=== PATIENT | male | born 1940 | race Caucasian/White ===

== ENCOUNTER 2019-05-10 22:20 | Inpatient (IN) | payer MEDICARE, OTHER ==
[2019-05-10 23:30] LABS: Basophils # (A) 0.1 k/uL (0-0.2); Basophils % (A) 1 %; Eosinophils # (A) 0.1 k/uL (0-0.7); Eosinophils % (A) 1 %; HCT 41.5 % (39.0-53.0); HGB 13.3 gm/dL (13.0-17.5); Lymphocytes # (A) 1.1 k/uL (1.0-4.8); Lymphocytes % (A) 11 %; MCHC 32.1 g/dL (31.0-37.0); MCV 96.4 fL (80.0-100.0); Mean Platelet Volume 7.3; Monocytes # (A) 0.6 k/uL (0-1.0); Monocytes % (A) 6 %; Neutrophils # (A) 8.3 k/uL (1.3-7.7); Neutrophils % (A) 81 %; Platelet Count 171 k/uL (150-450); RDW 12.3 % (11.5-15.5); WBC 10.3 k/uL (3.8-10.6)
--- NOTE | 2019-05-10 23:37 | ED ---
General Adult HPI - General Chief complaint: Fall Stated complaint: Fall Time Seen by Provider: 05/10/19 22:44 Source: EMS Mode of arrival: EMS - History of Present Illness Initial comments: Dictation was produced using [employer] dictation software. please excuse any grammatical, word or spelling errors. Chief Complaint: 78-year-old male past history of Parkinson's disease presents with right hip fracture. History of Present Illness: Patient is 78-year-old male he was transferred from [facility] for right hip fracture. Patient was resides at a senior care. He is at the senior care for Parkinson's disease. Patient was in his wheelchair when his wheelchair malfunction causing to fall and his right side. Patient states this happened early in the afternoon. Patient has any head trauma. No neck pain. No other complaints except for right hip pain. Denies any numbness or paresthesias to the right lower extremity. The ROS documented in this emergency department record has been reviewed and confirmed by me. Those systems with pertinent positive or negative responses have been documented in the HPI. All other systems are other negative and/or noncontributory. PHYSICAL EXAM: General Impression: Alert and oriented x3, not in acute distress HEENT: Normocephalic atraumatic, extra-ocular movements intact, pupils equal and reactive to light bilaterally, mucous membranes moist. Cardiovascular: Heart regular rate and rhythm, S1&S2 audible, no murmurs, rubs or gallops Chest: Lungs clear to auscultation bilaterally, no rhonchi, no wheeze, no rales Abdomen: Bowel sounds present, abdomen soft, non-tender, non-distended, no organomegaly Musculoskeletal: Pulses present and equal in all extremities, no peripheral edema, tinnitus palpation over the right hip Motor: no focal deficits noted Neurological: CN II-XII grossly intact, no focal motor or sensory deficits noted Skin: Intact with no visualized rashes Psych: Normal affect and mood ED course: 78-year-old male presents with alleged right hip fracture. We do not have access to those images. Vital signs upon arrival are within acceptable limits.Laboratory evaluation obtained CBC, coag panel, metabolic panel is unremarkable. Chest x-ray femur x-ray and hip pelvis x-ray was obtained. Chest x-ray is nonacute. Femur x-ray shows acute impacted subcapital fracture of the right femoral neck. Patient has [facility] with [facility] Discussed patient case with Dr. Royal who is willing to accept patient admission. He states that likely operative intervention on Monday. Does not need to be nothing by mouth until Monday night at midnight. Patient be admitted. Medicine to be on consult for medical clearance. EKG interpretation: Ventricular rate 77, sinus rhythm,. Interval 170, QS 106, QTC 461. No AR prolongation, no QTC prolongation, no ST or T-wave changes noted. No old EKG for comparison. Overall, this EKG is unremarkable - Related Data Home Medications Medication Instructions Recorded Confirmed Acetaminophen Tab [Tylenol Tab] 650 mg PO Q4H PRN 05/10/19 05/10/19 Alclometasone Dipropionate 1 applic TOPICAL BID 05/10/19 05/10/19 Artificial Tears-Hypromellose 1 drops BOTH EYES TID 05/10/19 05/10/19 [Artificial Tear Drops] Baclofen [Lioresal] 10 mg PO DAILY 05/10/19 05/10/19 Calcium Carbonate [Calcium] 600 mg PO BID 05/10/19 05/10/19 Carbidopa-Levodopa 25-100 mg 2 tab PO TID 05/10/19 05/10/19 [Sinemet 25-100] Certavite Tab Senior 1 tab PO HS 05/10/19 05/10/19 Cholecalciferol [Vitamin D3 (25 1,000 unit PO DAILY 05/10/19 05/10/19 Mcg = 1000 Iu)] Cranberry Fruit Extract [Cranberry] 200 mg PO DAILY 05/10/19 05/10/19 Cyanocobalamin (Vitamin B-12) 1,000 mcg PO DAILY 05/10/19 05/10/19 [Vitamin B-12] DULoxetine HCL [Cymbalta] 30 mg PO DAILY 05/10/19 05/10/19 Diazepam 2 mg PO BID 05/10/19 05/10/19 Entacapone [Comtan] 200 mg PO TID 05/10/19 05/10/19 HYDROcodone/APAP 5-325MG [[place] 1 tab PO TID PRN 05/10/19 05/10/19 5-325] Ketoconazole 2% Cream [Nizoral 2%] 1 applic TOPICAL BID 05/10/19 05/10/19 Magnesium Hydroxide [Milk of 2,400 mg PO DAILY PRN 05/10/19 05/10/19 Magnesia] Omeprazole 20 mg PO DAILY 05/10/19 05/10/19 Polyethylene Glycol 3350 [Miralax] 17 gm PO DAILY 05/10/19 05/10/19 Potassium 99 mg PO DAILY 05/10/19 05/10/19 Primidone [Mysoline] 25 mg PO HS 05/10/19 05/10/19 Primidone [Mysoline] 50 mg PO QAM 05/10/19 05/10/19 Sennosides [Senna] 8.6 mg PO DAILY 05/10/19 05/10/19 Vits A,C,E/Lutein/Minerals 1 tab PO DAILY 05/10/19 05/10/19 [Ocuvite with Lutein Tablet] Allergies Allergy/AdvReac Type Severity Reaction Status Date / Time Penicillins AdvReac Unknown Verified 05/10/19 22:38 Sulfa (Sulfonamide AdvReac Unknown Verified 05/10/19 22:38 Antibiotics) Review of Systems ROS Statement: Those systems with pertinent positive or pertinent negative responses have been documented in the HPI. ROS Other: All systems not noted in ROS Statement are negative. Past Medical History Past Medical History: GERD/Reflux, Renal Disease Additional Past Medical History / Comment(s): Dysphagia(regular diet 05/03),parkinsons, History of Any Multi-Drug Resistant Organisms: None Reported Past Surgical History: Back Surgery, Prostate Surgery Additional Past Surgical History / Comment(s): prostectomy, Past Psychological History: Anxiety, Depression Smoking Status: Never smoker Past Alcohol Use History: None Reported Past Drug Use History: None Reported Course Vital Signs 05/10/19 22:28 Temperature 97.8 F Pulse Rate 81 Respiratory 17 Rate Blood Pressure 138/85 O2 Sat by Pulse 93 L Oximetry Medical Decision Making - Lab Data Result diagrams: 05/10/19 22:55 05/10/19 22:55 Lab Results 05/10/19 05/10/19 05/10/19 Range/Units 22:55 22:55 22:55 WBC 10.3 (3.8-10.6) k/uL RBC 4.30 (4.30-5.90) m/uL Hgb 13.3 (13.0-17.5) gm/dL Hct 41.5 (39.0-53.0) % MCV 96.4 (80.0-100.0) fL MCH 31.0 (25.0-35.0) pg MCHC 32.1 (31.0-37.0) g/dL RDW 12.3 (11.5-15.5) % Plt Count 171 (150-450) k/uL Neutrophils % 81 % Lymphocytes % 11 % Monocytes % 6 % Eosinophils % 1 % Basophils % 1 % Neutrophils # 8.3 H (1.3-7.7) k/uL Lymphocytes # 1.1 (1.0-4.8) k/uL Monocytes # 0.6 (0-1.0) k/uL Eosinophils # 0.1 (0-0.7) k/uL Basophils # 0.1 (0-0.2) k/uL PT 10.9 (9.0-12.0) sec INR 1.0 (<1.2) APTT 27.5 (22.0-30.0) sec Sodium 137 (137-145) mmol/L Potassium 4.3 (3.5-5.1) mmol/L Chloride 107 (98-107) mmol/L Carbon Dioxide 24 (22-30) mmol/L Anion Gap 6 mmol/L BUN 21 H (9-20) mg/dL Creatinine 0.85 (0.66-1.25) mg/dL Est GFR (CKD-EPI)AfAm >90 (>60 ml/min/1.73 sqM) Est GFR (CKD-EPI)NonAf 84 (>60 ml/min/1.73 sqM) Glucose 90 (74-99) mg/dL Calcium 9.0 (8.4-10.2) mg/dL Disposition Clinical Impression: Right femoral fracture Disposition: ADMITTED IP TO THIS HOSP Condition: Fair Referrals: Martine Simmons NPC [REFERRING] - 1-2 days Decision Time: 00:00
[2019-05-10 23:40] LABS: Partial Thromboplastin Time 27.5 sec (22.0-30.0); Prothrombin Time 10.9 sec (9.0-12.0)
[2019-05-10 23:44] LABS: African American GFR (CKD) >90 (>60 ml/min/1.73 sqM); Anion Gap 6 mmol/L; Blood Urea Nitrogen 21 mg/dL (9-20); Carbon Dioxide 24 mmol/L (22-30); Chloride 107 mmol/L (98-107); Glucose 90 mg/dL (74-99); Non-African American GFR(CKD) 84 (>60 ml/min/1.73 sqM); Potassium 4.3 mmol/L (3.5-5.1); Sodium 137 mmol/L (137-145)
--- NOTE | 2019-05-10 23:47 | XR ---
INDICATION: Pain COMPARISON: None FINDINGS: AP view of the pelvis and AP and lateral views of the right hip are submitted for interpretation. There is an acute traumatic impacted subcapital fracture of the right femoral neck. There is no joint dislocation. Remainder of the bony pelvis appears intact. Surgical clips project over the pelvis. IMPRESSION: Acute impacted subcapital fracture of the right femoral neck.
--- NOTE | 2019-05-10 23:47 | XR ---
INDICATION: Pain COMPARISON: None FINDINGS: AP views of the right femur are obtained. There is an acute traumatic impacted subcapital fracture of the right femoral neck. The distal femur is intact. 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 IMPRESSION: Acute impacted subcapital fracture of the right femoral neck.
--- NOTE | 2019-05-10 23:47 | XR ---
INDICATION: Pain COMPARISON: None FINDINGS: Single frontal view of the chest is provided. The heart is enlarged. Pulmonary vascularity is slightly increased. There is opacity at the lateral left lung base. The right lung is clear. There is no pleural effusion or pneumothorax. Limited skeletal evaluation reveals no acute findings. IMPRESSION: 1. Opacity at the lateral left lung base, atelectasis or infiltrate.
[2019-05-10] MEDS ORDERED: SODIUM CHLORIDE 0.9% 1,000 ML IV STA (23:50)
[2019-05-11] MEDS ORDERED: NALOXONE 0.4 MG/ML 1 ML VIAL IV PRN
[2019-05-11] MEDS ORDERED: ACETAMINOPHEN TAB 325 MG TAB PO PRN ×2 (00:02)
[2019-05-11 01:36] LABS: Appearance,Urine Clear (Clear); Bilirubin,Urine Negative (Negative); Blood,Urine Negative (Negative); Color,Urine Yellow; Glucose,Urine (UA) Negative (Negative); Ketones,Urine Negative (Negative); Leukocyte Esterase,Urine Negative (Negative); Nitrite,Urine Negative (Negative); Protein,Urine Negative (Negative); Specific Gravity,Urine 1.016 (1.001-1.035); Urobilinogen,Urine <2.0 mg/dL (<2.0)
[2019-05-11] MEDS: SODIUM CHLORIDE 0.9% 1,000 ML IV SCH ×2 (01:38→20:33)
[2019-05-11] MEDS: MORPHINE SULFATE 4 MG/ML SYRINGE IV PRN ×2 (03:25→09:32)
[2019-05-11] MEDS: PANTOPRAZOLE 40 MG/10 ML VIAL IV SCH (09:32)
[2019-05-11] MEDS: DIAZEPAM 2 MG TAB PO SCH ×2 (09:33→20:29)
[2019-05-11] MEDS: CARBIDOPA-LEVODOPA 25-100 MG 1 EACH TAB PO SCH ×3 (09:33→20:28)
[2019-05-11] MEDS: HEPARIN SODIUM,PORCINE 5,000 UNIT/ML 1 ML VIAL SQ SCH ×2 (09:41→20:28)
[2019-05-11] MEDS: HYDROCORTISONE 1% CREAM 30 GM TUBE TOPICAL SCH ×2 (09:41→20:28)
--- NOTE | 2019-05-11 12:06 | P.HPOR ---
History of Present Illness H&P Date: 05/11/19 This is a 78-year-old male who is admitted after a fall. Patient was brought to the emergency room via EMS from [facility] and typically resides in a care home. Patient states that he lost his balance and fell. Patient denies any lightheadedness or syncope. Today, patient reports pain in the right hip. Patient is a fairly poor historian due to confusion and no family is present in the room. Patient's past medical history is significant for Parkinson's disease, prostate cancer, GERD and renal disease. Review of Systems See HPI. Past Medical History Past Medical History: Cancer, Chest Pain / Angina, GERD/Reflux, Prostate Disorder, Renal Disease Additional Past Medical History / Comment(s): Dysphagia(regular diet 05/2019),parkinsons, prostate cancer History of Any Multi-Drug Resistant Organisms: None Reported Past Surgical History: Back Surgery, Prostate Surgery Additional Past Surgical History / Comment(s): prostectomy Past Psychological History: Anxiety, Depression Smoking Status: Never smoker Past Alcohol Use History: None Reported Past Drug Use History: None Reported Medications and Allergies Home Medications Medication Instructions Recorded Confirmed Type Acetaminophen Tab [Tylenol Tab] 650 mg PO Q4H PRN 05/10/19 05/10/19 History Alclometasone Dipropionate 1 applic TOPICAL BID 05/10/19 05/10/19 History Artificial Tears-Hypromellose 1 drops BOTH EYES TID 05/10/19 05/10/19 History [Artificial Tear Drops] Baclofen [Lioresal] 10 mg PO DAILY 05/10/19 05/10/19 History Calcium Carbonate [Calcium] 600 mg PO BID 05/10/19 05/10/19 History Carbidopa-Levodopa 25-100 mg 2 tab PO TID 05/10/19 05/10/19 History [Sinemet 25-100] Certavite Tab Senior 1 tab PO HS 05/10/19 05/10/19 History Cholecalciferol [Vitamin D3 (25 1,000 unit PO DAILY 05/10/19 05/10/19 History Mcg = 1000 Iu)] Cranberry Fruit Extract [Cranberry] 200 mg PO DAILY 05/10/19 05/10/19 History Cyanocobalamin (Vitamin B-12) 1,000 mcg PO DAILY 05/10/19 05/10/19 History [Vitamin B-12] DULoxetine HCL [Cymbalta] 30 mg PO DAILY 05/10/19 05/10/19 History Diazepam 2 mg PO BID 05/10/19 05/10/19 History Entacapone [Comtan] 200 mg PO TID 05/10/19 05/10/19 History HYDROcodone/APAP 5-325MG [[place] 1 tab PO TID PRN 05/10/19 05/10/19 History 5-325] Ketoconazole 2% Cream [Nizoral 2%] 1 applic TOPICAL BID 05/10/19 05/10/19 History Magnesium Hydroxide [Milk of 2,400 mg PO DAILY PRN 05/10/19 05/10/19 History Magnesia] Omeprazole 20 mg PO DAILY 05/10/19 05/10/19 History Polyethylene Glycol 3350 [Miralax] 17 gm PO DAILY 05/10/19 05/10/19 History Potassium 99 mg PO DAILY 05/10/19 05/10/19 History Primidone [Mysoline] 25 mg PO HS 05/10/19 05/10/19 History Primidone [Mysoline] 50 mg PO QAM 05/10/19 05/10/19 History Sennosides [Senna] 8.6 mg PO DAILY 05/10/19 05/10/19 History Vits A,C,E/Lutein/Minerals 1 tab PO DAILY 05/10/19 05/10/19 History [Ocuvite with Lutein Tablet] Allergies Allergy/AdvReac Type Severity Reaction Status Date / Time Penicillins AdvReac Unknown Verified 05/10/19 22:38 Sulfa (Sulfonamide AdvReac Unknown Verified 05/10/19 22:38 Antibiotics) Physical Examination On exam patient is resting comfortably in bed in no acute distress. Patient is somewhat confused, but is alert and will answer questions. There is minimal tenderness to palpation over the right hip. Bilateral lower extremities are warm and well perfused. Skin is intact. There is no erythema or ecchymosis. Patient has limited range of motion of the right lower extremity due to injury. Dorsalis pedis pulses are 2+ in bilateral lower extremities. There is no tenderness to palpation over the left lower extremity. Calves are soft and nontender to palpation bilaterally. Sensation is intact. There is no tenderness to palpation over bilateral upper extremities. Exams of the head and neck are within normal limits. Results X-rays of the right hip and pelvis show a subcapital fracture of the right femur. - Labs Labs: Abnormal Lab Results - Last 24 Hours (Table) 05/10/19 05/10/19 Range/Units 22:55 22:55 Neutrophils # 8.3 H (1.3-7.7) k/uL BUN 21 H (9-20) mg/dL H & H 05/10/19 Range/Units 22:55 Hgb 13.3 (13.0-17.5) gm/dL Hct 41.5 (39.0-53.0) % Coagulation 05/10/19 Range/Units 22:55 INR 1.0 (<1.2) Result Diagrams: 05/10/19 22:55 05/10/19 22:55 Assessment and Plan Assessment: History of prostate cancer GERD Renal disease (1) Fall Current Visit: Yes Status: Acute Code(s): W19.XXXA - UNSPECIFIED FALL, INITIAL ENCOUNTER SNOMED Code(s): 2006501 (2) Parkinsons disease Current Visit: Yes Status: Acute Code(s): G20 - PARKINSON'S DISEASE SNOMED Code(s): 54422704 (3) Closed right hip fracture Current Visit: Yes Status: Acute Code(s): S72.001A - FRACTURE OF UNSP PART OF NECK OF RIGHT FEMUR, INIT SNOMED Code(s): 853972387 (4) Right femoral fracture Current Visit: Yes Status: Acute Code(s): S72.91XA - UNSP FRACTURE OF RIGHT FEMUR, INIT FOR CLOS FX SNOMED Code(s): 31569232 Plan: 1. X-rays are reviewed. Patient is to be nonweightbearing to the right lower extremity. 2. Continue pain control. 3. NPO after midnight. 4. Appreciate input from medicine 5. Right hip hemiarthroplasty is scheduled for tomorrow pending medical clearance and consent.
[2019-05-11] MEDS: HYDROcodone/APAP 5-325MG 1 EACH TAB PO PRN (15:04)
[2019-05-11] MEDS: ARTIFICIAL TEARS-HYPROMELLOSE DROPS 15 ML BTL BOTH EYES SCH ×3 (15:38→20:29)
[2019-05-11] MEDS: CLOTRIMAZOLE 1% CREAM 15 GM TUBE TOPICAL SCH (20:32)
[2019-05-12] MEDS: HYDROcodone/APAP 5-325MG 1 EACH TAB PO PRN (01:50)
[2019-05-12] MEDS: MORPHINE SULFATE 4 MG/ML SYRINGE IV PRN (05:22)
[2019-05-12] MEDS: DIAZEPAM 2 MG TAB PO SCH ×2 (07:57→23:39)
[2019-05-12] MEDS: CARBIDOPA-LEVODOPA 25-100 MG 1 EACH TAB PO SCH ×3 (07:57→21:52)
[2019-05-12] MEDS: ARTIFICIAL TEARS-HYPROMELLOSE DROPS 15 ML BTL BOTH EYES SCH ×3 (08:27→21:55)
[2019-05-12] MEDS: HEPARIN SODIUM,PORCINE 5,000 UNIT/ML 1 ML VIAL SQ SCH (08:27)
[2019-05-12] MEDS: CLOTRIMAZOLE 1% CREAM 15 GM TUBE TOPICAL SCH ×2 (08:27→22:08)
[2019-05-12] MEDS: HYDROCORTISONE 1% CREAM 30 GM TUBE TOPICAL SCH ×2 (08:27→22:08)
[2019-05-12] MEDS: PANTOPRAZOLE 40 MG/10 ML VIAL IV SCH (08:27)
[2019-05-12] MEDS ORDERED: MIDAZOLAM 2 MG/2 ML VIAL ONE ×2 (08:31)
[2019-05-12] MEDS ORDERED: SODIUM CHLORIDE 0.9% 100 ML BAG ONE ×2 (08:31)
[2019-05-12] MEDS ORDERED: PROPOFOL 10 MG/ML 20 ML VIAL IV ONE ×2 (08:31)
[2019-05-12] MEDS ORDERED: ePHEDrine SULFATE/0.9% NACL/PF 50 MG/5 ML SYRINGE IV ONE ×2 (08:31)
[2019-05-12] MEDS ORDERED: TRANEXAMIC ACID 1,000 MG/10 ML VIAL ONE ×2 (08:31)
[2019-05-12] MEDS ORDERED: SODIUM CHLORIDE 0.9% 300 ML IV ONE ×2 (08:31)
[2019-05-12] MEDS ORDERED: KETAMINE 10 MG/ML 20 ML VIAL ONE ×2 (08:31)
[2019-05-12] MEDS ORDERED: Acetaminophen-Codeine 300-30mg TAB PO PRN (08:37)
[2019-05-12] MEDS ORDERED: ONDANSETRON 4 MG/2 ML VIAL IVP PRN (08:37)
[2019-05-12] MEDS ORDERED: SODIUM CHLORIDE 0.9% 50 ML with ceFAZolin 2,000 MG IV ONE ×2 (08:56)
[2019-05-12] MEDS ORDERED: LACTATED RINGERS 1,000 ML IV ONE ×2 (09:18)
[2019-05-12] MEDS ORDERED: TRANEXAMIC ACID 1,000 MG in SODIUM CHLORIDE 0.9% 100 ML IVPB PRN ×2 (09:20→09:21)
[2019-05-12] MEDS ORDERED: ceFAZolin 3,000 MG in SODIUM CHLORIDE 0.9% IRRIGATIO 3,000 ML IRRIGATION ONE (09:34)
--- NOTE | 2019-05-12 10:22 | P.OP ---
Date of Procedure: 05/12/19 Procedure(s) Performed: PREOPERATIVE DIAGNOSIS: Right hip femoral neck fracture POSTOPERATIVE DIAGNOSIS: Right hip femoral neck fracture OPERATION: Right hip cemented unipolar hemiarthroplasty. ANESTHESIA: Spinal ESTIMATED BLOOD LOSS: 225 ml. METAPHYSICS TEACHER: None COMPLICATIONS: None apparent. COMPONENTS IMPLANTED: Lori LDFx cemented femoral stem; unipolar femoral head; neck extension augments as needed. INDICATIONS: Mr. Westfall is a 78-year-old male with a history of falling and sustaining a femoral neck fracture. He has a history of severe Parkinson's disease. I have recommended surgical treatment with a cemented unipolar hemiarthroplasty. I have discussed this procedure in detail and explained the potential risks and complications as being inclusive of, but not limited to: Bleeding, infection, scarring, discomfort, blood vessel and/or nerve damage, limb length inequality, gait disturbance, blood clot, pulmonary embolism, , and other risks. The consent form has been signed. PROCEDURE: After appropriate consent was obtained, the patient was taken to the operating room and placed in supine position. Spinal anesthetic was administered and after confirmation of adequate anesthesia, the patient was placed into the lateral decubitus position with the affected side up. Care was taken to make sure that all pressure points were adequately padded and a Uzair hip positioner was utilized for positioning. The hip was prepped and draped in the usual aseptic fashion using a combination of Chloraprep and alcohol. Ioban drape was used for the case and the patient received intravenous antibiotics prior to the incision. The incision was created directly over the greater trochanter and carried slightly posteriorly for a posterior approach to the hip. The incision was then deepened down to subcutaneous tissue and fascia treasure. Fascia treasure was split in line with the incision and split proximally along the fibers of the gluteus candy. The underlying fibers of the muscle were teased apart using finger dissection and bleeding vessels were picked up and coagulated. Retractor was then placed posteriorly consisting of a blunt [place]. The short external rotators and capsule were exposed and good visualization of the attachment of the external rotators to the femur was established. The short external rotators and capsule were released using electrocautery from their femoral attachments. A hockey stick shaped incision was created in the capsule. Joint fluid and hemarthrosis was evacuated and the patient's hip was internally rotated to expose the fracture site. The femoral neck cut was created approximately 1 cm superior to the lesser trochanter using a reciprocating saw. The femoral head and neck fragment was removed and visualization and palpation of the acetabular vault showed intact hyaline cartilage with no bone exposure or significant degeneration. Attention was then directed back to the proximal femur. Retractors were placed around the proximal femur and box osteotome was used followed by canal finder and trochanteric reamer. Cylindrical reaming was performed. Progressive broaching was then performed starting with a #10 broach and progressing final size, in a position of 10-15 degrees anteversion. Samish anteversion was within 5 degrees of stem position. The final size broach had excellent fit and fill of the patient's metaphysis and diaphysis. Calcar planing was performed. Trial reduction was then performed starting with appropriately sized femoral head and various neck extensions to evaluate stability, limb length equality, and soft tissue tension. Once these parameters were satisfactory, the corresponding final components were then called for. Trial components were removed. The femoral canal was sized for the centralizer and cement plug. Once the cement plug had been inserted distal to the planned length of the femoral component, the canal was pulse lavaged and brushed to remove any unstable bone. It was then dried with a lap sponge. Cement was mixed under vacuum conditions to decrease porosity and inserted into a cement gun. Distal centralizer was placed onto the femoral component with a bit of cement. The cement was allowed to reach a slightly doughy consistency and then the canal was filled retrograde with the cement gun. Thumb pressurization was performed three times. The femoral component was then inserted with the previously determined degree of anteversion. Excess cement was removed before it hardened completely. The femoral head was then impacted onto the Wong taper. Blood and debris were removed from the acetabular socket and the hip was then reduced and checked for stability, limb length and soft tissue tension. These parameters were found to be satisfactory; the wound was then thoroughly irrigated with normal saline. Final hemostasis was obtained using electrocautery. Closure of the capsule was performed meticulously using #3 Vicryl suture. Four [id number] sutures were placed in the posterior capsule along with repair of the external rotators. The fascia treasure was then repaired using combination of #3 Vicryl suture in interrupted fashion and Quill in running fashion. 2-0 Vicryl suture was used for the subcutaneous tissues and 3-0 Quill for the skin. Dermabond tape was then applied. The patient tolerated the procedure well. There were no complications and the wound bed was dry and there was no need for drain placement. Sterile dressing was then applied and the patient was carefully removed from the operating room table, placed on the stretcher and was taken to the recovery room in stable condition. Sponge and needle counts were correct.
--- NOTE | 2019-05-12 10:24 | P.CONS ---
History of Present Illness - Reason for Consult Consult date: 05/11/19 Medical clearance for surgery Requesting physician: Porfirio Nye - Chief Complaint Right hip fracture - History of Present Illness 78-year-old male patient with past medical history of Parkinson's disease, was transferred to our facility from [facility] for right hip fracture; patient is a resident of a long-term care facility for advanced Parkinson's disease; patient is not able to tell much about injury, according to ER documentation patient was in his wheelchair when he had a fall to his right side due to future malfunctioning; patient was transferred to [facility] where he was found to have right hip fracture; he was transferred to our facility for further orthopedic evaluation and treatment Review of Systems Constitutional: Denies chills, Denies fever Eyes: denies blurred vision, denies loss of vision Ears, nose, mouth and throat: Denies headache Cardiovascular: Denies chest pain, Denies high blood pressure, Denies shortness of breath Respiratory: Denies cough with sputum, Denies dyspnea Gastrointestinal: Denies abdominal pain, Denies nausea, Denies vomiting Genitourinary: Denies dysuria, Denies hematuria Musculoskeletal: Denies gait dysfunction Integumentary: Denies change in hair/nails Neurological: Reports confusion, Reports gait dysfunction Psychiatric: Reports anxiety, Reports confusion Endocrine: Denies cold intolerance, Denies heat intolerance Hematologic/Lymphatic: Denies easy bleeding, Denies easy bruising, Denies lymphadenopathy Past Medical History Past Medical History: Cancer, Chest Pain / Angina, GERD/Reflux, Prostate Disorder, Renal Disease Additional Past Medical History / Comment(s): Dysphagia(regular diet 05/2019),parkinsons, prostate cancer History of Any Multi-Drug Resistant Organisms: None Reported Past Surgical History: Back Surgery, Prostate Surgery Additional Past Surgical History / Comment(s): prostectomy Past Psychological History: Anxiety, Depression Smoking Status: Never smoker Past Alcohol Use History: None Reported Past Drug Use History: None Reported Medications and Allergies Home Medications Medication Instructions Recorded Confirmed Type Acetaminophen Tab [Tylenol Tab] 650 mg PO Q4H PRN 05/10/19 05/10/19 History Alclometasone Dipropionate 1 applic TOPICAL BID 05/10/19 05/10/19 History Artificial Tears-Hypromellose 1 drops BOTH EYES TID 05/10/19 05/10/19 History [Artificial Tear Drops] Baclofen [Lioresal] 10 mg PO DAILY 05/10/19 05/10/19 History Calcium Carbonate [Calcium] 600 mg PO BID 05/10/19 05/10/19 History Carbidopa-Levodopa 25-100 mg 2 tab PO TID 05/10/19 05/10/19 History [Sinemet 25-100] Certavite Tab Senior 1 tab PO HS 05/10/19 05/10/19 History Cholecalciferol [Vitamin D3 (25 1,000 unit PO DAILY 05/10/19 05/10/19 History Mcg = 1000 Iu)] Cranberry Fruit Extract [Cranberry] 200 mg PO DAILY 05/10/19 05/10/19 History Cyanocobalamin (Vitamin B-12) 1,000 mcg PO DAILY 05/10/19 05/10/19 History [Vitamin B-12] DULoxetine HCL [Cymbalta] 30 mg PO DAILY 05/10/19 05/10/19 History Diazepam 2 mg PO BID 05/10/19 05/10/19 History Entacapone [Comtan] 200 mg PO TID 05/10/19 05/10/19 History HYDROcodone/APAP 5-325MG [[place] 1 tab PO TID PRN 05/10/19 05/10/19 History 5-325] Ketoconazole 2% Cream [Nizoral 2%] 1 applic TOPICAL BID 05/10/19 05/10/19 History Magnesium Hydroxide [Milk of 2,400 mg PO DAILY PRN 05/10/19 05/10/19 History Magnesia] Omeprazole 20 mg PO DAILY 05/10/19 05/10/19 History Polyethylene Glycol 3350 [Miralax] 17 gm PO DAILY 05/10/19 05/10/19 History Potassium 99 mg PO DAILY 05/10/19 05/10/19 History Primidone [Mysoline] 25 mg PO HS 05/10/19 05/10/19 History Primidone [Mysoline] 50 mg PO QA 05/10/19 05/10/19 History Sennosides [Senna] 8.6 mg PO DAILY 05/10/19 05/10/19 History Vits A,C,E/Lutein/Minerals 1 tab PO DAILY 05/10/19 05/10/19 History [Ocuvite with Lutein Tablet] Allergies Allergy/AdvReac Type Severity Reaction Status Date / Time Penicillins AdvReac Unknown Verified 05/10/19 22:38 Sulfa (Sulfonamide AdvReac Unknown Verified 05/10/19 22:38 Antibiotics) Physical Exam Vitals: Vital Signs Temp Pulse Pulse Resp BP BP Pulse Ox 05/11/19 07:45 98.3 F 76 16 116/73 92 L 05/11/19 03:38 97.6 F 83 16 153/88 94 L 05/11/19 03:35 18 05/11/19 00:30 98.3 F 83 18 150/95 97 05/10/19 22:28 97.8 F 81 17 138/85 93 L Intake and Output 05/10/19 05/11/19 05/11/19 22:59 06:59 14:59 Intake Total 450 Balance 450 Intake: Intake, IV Titration 450 Amount Sodium Chloride 0.9% 1, 450 000 ml @ 75 mls/hr IV . [id number] [facility] Rx#:[id number] Other: Voiding Method Incontinent Weight 66.678 kg - Constitutional General appearance: Present: average body habitus, cooperative, no acute distress Eyes: Present: anicteric sclerae, EOMI, PERRLA, normal appearance Neck: Present: normal ROM. Absent: lymphadenopathy, rigidity, thyromegaly Carotids: negative: bruit present Thyroid: bilateral: normal size, negative: enlarged, nodule Respiratory: bilateral: CTA, negative: rales, rhonchi, wheezing - Cardiovascular Rhythm: regular; normal: S1, S2 Abnormal Heart Sounds: Absent: systolic murmur, diastolic murmur General gastrointestinal: Present: normal bowel sounds, soft. Absent: distended, organomegaly, tenderness Genitourinary Comment(s): deferred Integumentary: Present: normal turgor. Absent: jaundiced, rash, ulcer Neurologic: Present: CNII-XII intact. Absent: focal deficits Musculoskeletal: Pain present on passive movement to right lower extremity Results CBC & Chem 7: 05/10/19 22:55 05/10/19 22:55 Labs: Abnormal Lab Results - Last 24 Hours (Table) 05/10/19 05/10/19 Range/Units 22:55 22:55 Neutrophils # 8.3 H (1.3-7.7) k/uL BUN 21 H (9-20) mg/dL Assessment and Plan Assessment: 1. Right hip fracture - Patient is evaluated and labs are reviewed; stable. Patient is cleared for surgery possibly tomorrow morning 2. Parkinson's disease; stable on Sinemet at 3 times a day dosing 3. DVT/GI prophylaxis; subcu Lovenox/Protonix CODE STATUS; full code Time with Patient: Greater than 30
--- NOTE | 2019-05-12 11:06 | XR ---
EXAMINATION TYPE: XR Hip Limited RT DATE OF EXAM: 05/12/2019 COMPARISON: None HISTORY: Component position. TECHNIQUE: Single AP right hip FINDINGS: There is been placement of a femoral prosthesis. Femoral component articulates with the dina tabulum. No acute fractures are evident. IMPRESSION: 1. No acute fractures post prosthesis placement.
--- NOTE | 2019-05-12 12:26 | P.GSCN ---
History of Present Illness Consult date: 05/12/19 Reason for Consult: Urinary retention History of present illness: The patient is a 78-year-old male with Parkinson's disease who resides in a [facility]. His was wheeling him in his wheelchair yesterday in the rubber tire of the wheelchair fell off the round and the wheelchair suddenly slipped to the side. The patient was discovered to have a right hip fracture and was transferred from the [place] emergency room for further evaluation. He underwent a right hip hemiarthroplasty under spinal anesthesia earlier this morning. I examined the patient in the recovery room. The history is from a discussion with the patient and with his . The patient has a history of prostate cancer which was treated with radical prostatectomy over 20 years ago. He has been in remission since that time. He developed urinary incontinence and was treated with an AMS artificial urinary sphincter over 20 years ago. He apparently has had some problems in deflating the pump due to his Parkinson's disease and is not always certain that he is able to void completely. He usually voids every 2-3 hours during the day and several times at night. He does have periodic incontinence. He had been incontinent since he was admitted yesterday. No bladder scan has been done to check a postvoid residual. A catheter was not inserted at the time of surgery due to the history of the artificial sphincter. The patient has had occasional urinary tract infections in the past but a urinalysis performed at the time of admission was unremarkable. BUN/creatinine were 21/0.85. Review of Systems - Constitutional Reports fatigue, Denies chills, Denies fever - Gastrointestinal Denies abdominal pain - Genitourinary Reports as per HPI Past Medical History Past Medical History: Cancer, Chest Pain / Angina, GERD/Reflux, Prostate Disorder, Renal Disease Additional Past Medical History / Comment(s): Dysphagia(regular diet 05/2019),parkinsons, prostate cancer History of Any Multi-Drug Resistant Organisms: None Reported Past Surgical History: Back Surgery (Cervical spine and lumbosacral spine), Prostate Surgery Additional Past Surgical History / Comment(s): Radical prostectomy for treatment of prostate cancer over 20 years ago. Placement of AMS artificial urinary sphincter over 20 years ago Past Psychological History: Anxiety, Depression Smoking Status: Never smoker Past Alcohol Use History: None Reported Past Drug Use History: None Reported Medications and Allergies Home Medications Medication Instructions Recorded Confirmed Type Acetaminophen Tab [Tylenol Tab] 650 mg PO Q4H PRN 05/10/19 05/10/19 History Alclometasone Dipropionate 1 applic TOPICAL BID 05/10/19 05/10/19 History Artificial Tears-Hypromellose 1 drops BOTH EYES TID 05/10/19 05/10/19 History [Artificial Tear Drops] Baclofen [Lioresal] 10 mg PO DAILY 05/10/19 05/10/19 History Calcium Carbonate [Calcium] 600 mg PO BID 05/10/19 05/10/19 History Carbidopa-Levodopa 25-100 mg 2 tab PO TID 05/10/19 05/10/19 History [Sinemet 25-100] Certavite Tab Senior 1 tab PO HS 05/10/19 05/10/19 History Cholecalciferol [Vitamin D3 (25 1,000 unit PO DAILY 05/10/19 05/10/19 History Mcg = 1000 Iu)] Cranberry Fruit Extract [Cranberry] 200 mg PO DAILY 05/10/19 05/10/19 History Cyanocobalamin (Vitamin B-12) 1,000 mcg PO DAILY 05/10/19 05/10/19 History [Vitamin B-12] DULoxetine HCL [Cymbalta] 30 mg PO DAILY 05/10/19 05/10/19 History Diazepam 2 mg PO BID 05/10/19 05/10/19 History Entacapone [Comtan] 200 mg PO TID 05/10/19 05/10/19 History HYDROcodone/APAP 5-325MG [[place] 1 tab PO TID PRN 05/10/19 05/10/19 History 5-325] Ketoconazole 2% Cream [Nizoral 2%] 1 applic TOPICAL BID 05/10/19 05/10/19 History Magnesium Hydroxide [Milk of 2,400 mg PO DAILY PRN 05/10/19 05/10/19 History Magnesia] Omeprazole 20 mg PO DAILY 05/10/19 05/10/19 History Polyethylene Glycol 3350 [Miralax] 17 gm PO DAILY 05/10/19 05/10/19 History Potassium 99 mg PO DAILY 05/10/19 05/10/19 History Primidone [Mysoline] 25 mg PO HS 05/10/19 05/10/19 History Primidone [Mysoline] 50 mg PO QAM 05/10/19 05/10/19 History Sennosides [Senna] 8.6 mg PO DAILY 05/10/19 05/10/19 History Vits A,C,E/Lutein/Minerals 1 tab PO DAILY 05/10/19 05/10/19 History [Ocuvite with Lutein Tablet] Allergies Allergy/AdvReac Type Severity Reaction Status Date / Time Penicillins AdvReac Unknown Verified 05/10/19 22:38 Sulfa (Sulfonamide AdvReac Unknown Verified 05/10/19 22:38 Antibiotics) Surgical - Exam Vital Signs Temp Pulse Resp BP Pulse Ox 97.8 F 81 17 138/85 93 L 05/10/19 22:28 05/10/19 22:28 05/10/19 22:28 05/10/19 22:28 05/10/19 22:28 - General well developed, well nourished, moderate pain - ENT no hearing loss - Neck no masses, no lymphadectomy - Respiratory normal respiratory effort - Abdomen Abdomen: soft, non tender, no organomegaly Hernia: none - Genitourinary normal penis with no external lesions, testicles present, other (The pump from the artificial urinary sphincter is present in the right scrotum) Results - Labs 05/10/19 22:55 05/10/19 22:55 Microbiology - Last 24 Hours (Table) 05/10/19 20:10 Urine Culture - Preliminary Urine,Voided Assessment and Plan (1) Incontinence Narrative/Plan: The patient has a history of chronic urinary incontinence which may be related to incomplete bladder emptying if he is unable to deflate the sphincter pump to void due to his Parkinson's disease. His incontinence could also be related to his underlying Parkinson's disease. I deactivated the pump at the bedside and will leave it deactivated until he is ambulatory and more awake. A bladder scan will be obtained to determine whether the patient is in actually in urinary retention at this time. If the postvoid residual is significantly elevated then a 12-[place] Curry catheter could be placed provided that the artificial sphincter remains deactivated. Current Visit: Yes Status: Acute Code(s): R32 - UNSPECIFIED URINARY INCONTINENCE SNOMED Code(s): 78963626
[2019-05-12 13:04] LABS: Basophils % (A) 0 %; Eosinophils # (A) 0.1 k/uL (0-0.7); Eosinophils % (A) 1 %; HCT 39.2 % (39.0-53.0); HGB 12.9 gm/dL (13.0-17.5); Lymphocytes # (A) 0.8 k/uL (1.0-4.8); Lymphocytes % (A) 9 %; MCH 32.6 pg (25.0-35.0); MCHC 32.9 g/dL (31.0-37.0); MCV 98.9 fL (80.0-100.0); Mean Platelet Volume 7.8; Monocytes # (A) 0.5 k/uL (0-1.0); Monocytes % (A) 5 %; Neutrophils # (A) 7.5 k/uL (1.3-7.7); Neutrophils % (A) 83 %; Platelet Count 163 k/uL (150-450); RBC 3.97 m/uL (4.30-5.90); RDW 13.6 % (11.5-15.5)
--- NOTE | 2019-05-12 14:06 | P.PN ---
Subjective Progress Note Date: 05/12/19 Principal diagnosis: Right femoral neck fracture Status post right hip unipolar hemiarthroplasty 78-year-old male patient with history of Parkinson's disease who was admitted to the hospital with femoral neck fracture; patient has undergone surgical treatment with unipolar hemiarthroplasty, POD #0 Objective - Vital Signs Vital signs: Vital Signs Temp 97.1 F L 05/12/19 10:41 Pulse 92 05/12/19 11:33 Resp 16 05/12/19 11:33 BP 133/65 05/12/19 11:33 Pulse Ox 98 05/12/19 11:33 Intake & Output 05/11/19 05/12/19 05/12/19 18:59 06:59 18:59 Intake Total 430 159 9666 Output Total 250 Balance 150 810 801 Intake: IV 1051 Intake, IV Titration 150 560 Amount Sodium Chloride 0.9% 1, 60 000 ml @ 20 mls/hr IV . Q24H [facility]ON[facility] Rx#:[id number] Sodium Chloride 0.9% 1, 150 500 000 ml @ 75 mls/hr IV . [id number] STA Rx#:[id number] Oral 250 Output: Estimated Blood Loss 250 Other: Voiding Method Diaper Diaper Incontinent Incontinent # Voids 1 - Exam - Constitutional General appearance: Present: average body habitus, cooperative, no acute distress Neck: Present: normal ROM. Absent: lymphadenopathy, rigidity, thyromegaly Carotids: negative: bruit present Thyroid: bilateral: normal size, negative: enlarged, nodule - Respiratory Respiratory: bilateral: CTA, negative: rales, rhonchi, wheezing - Cardiovascular Rhythm: regular Heart sounds: normal: S1, S2 Abnormal Heart Sounds: Absent: systolic murmur, diastolic murmur - Gastrointestinal General gastrointestinal: Present: normal bowel sounds, soft. Absent: distended, organomegaly, tenderness - Genitourinary Genitourinary Comment(s): deferred - Integumentary Integumentary: Present: normal turgor. Absent: jaundiced, rash, ulcer - Neurologic Neurologic: Present: CNII-XII intact. Absent: focal deficits - Labs CBC & Chem 7: 05/12/19 12:42 05/10/19 22:55 Labs: Microbiology - Last 24 Hours (Table) 05/10/19 20:10 Urine Culture - Preliminary Urine,Voided Assessment and Plan Assessment: 1. Right hip fracture - Patient is evaluated and labs are reviewed; stable. Patient is cleared for surgery possibly tomorrow morning 2. Parkinson's disease; stable on Sinemet at 3 times a day dosing 3. DVT/GI prophylaxis; subcu Lovenox/Protonix CODE STATUS; full code Time with Patient: Greater than 30
[2019-05-12] MEDS: Acetaminophen-Codeine 300-30mg TAB PO PRN ×3 (14:25→21:52)
[2019-05-12] MEDS: ENOXAPARIN 40 MG/0.4 ML SYRINGE SQ SCH (21:52)
[2019-05-12] MEDS: SENNOSIDES-DOCUSATE SODIUM 1 EACH TAB PO SCH (21:52)
[2019-05-13] MEDS: SODIUM CHLORIDE 0.9% 1,000 ML IV SCH ×2 (00:38→23:48)
[2019-05-13] MEDS: Acetaminophen-Codeine 300-30mg TAB PO PRN ×4 (02:32→15:33)
[2019-05-13 08:13] LABS: African American GFR (CKD) >90 (>60 ml/min/1.73 sqM); Anion Gap 6 mmol/L; Blood Urea Nitrogen 11 mg/dL (9-20); Calcium 8.6 mg/dL (8.4-10.2); Carbon Dioxide 26 mmol/L (22-30); Chloride 107 mmol/L (98-107); Glucose 103 mg/dL (74-99); Non-African American GFR(CKD) 83 (>60 ml/min/1.73 sqM); Potassium 4.3 mmol/L (3.5-5.1); Sodium 139 mmol/L (137-145)
[2019-05-13] MEDS: CARBIDOPA-LEVODOPA 25-100 MG 1 EACH TAB PO SCH ×3 (08:23→22:08)
[2019-05-13] MEDS: ENOXAPARIN 40 MG/0.4 ML SYRINGE SQ SCH (08:24)
[2019-05-13] MEDS: PANTOPRAZOLE 40 MG/10 ML VIAL IV SCH (08:24)
[2019-05-13] MEDS: MULTIVITAMINS, THERA 1 EACH TAB PO SCH (08:24)
[2019-05-13] MEDS: ARTIFICIAL TEARS-HYPROMELLOSE DROPS 15 ML BTL BOTH EYES SCH ×3 (08:25→22:10)
[2019-05-13] MEDS: DIAZEPAM 2 MG TAB PO SCH ×2 (09:26→22:09)
--- NOTE | 2019-05-13 09:36 | P.PN ---
Subjective Progress Note Date: 05/13/19 A 78-year-old male who is status post right hip hemiarthroplasty by Dr. Nye. This is postoperative day #1. Patient is seen and evaluated at bedside. Patient does admit to some soreness in the right hip. Patient denies any fever/chills, numbness, weakness, tingling, shortness of breath or chest pain. Objective - Vital Signs Vital signs: Vital Signs Temp 98 F 05/13/19 08:02 Pulse 85 05/13/19 08:02 Resp 12 05/13/19 08:02 BP 103/67 05/13/19 08:02 Pulse Ox 96 05/13/19 08:02 Intake & Output 05/12/19 05/13/19 05/13/19 18:59 06:59 18:59 Intake Total 1051 60 Output Total 850 450 Balance 201 -390 Intake: IV 1051 Intake, IV Titration 60 Amount Sodium Chloride 0.9% 1, 60 000 ml @ 20 mls/hr IV . Q24H [facility] Rx#:[id number] Output: Urine 600 450 Uretheral (Curry) 600 Estimated Blood Loss 250 Other: Voiding Method Diaper Indwelling Catheter Indwelling Catheter Incontinent # Voids 1 - Exam On exam patient is resting comfortably in bed in no acute distress. Incision is clean, dry and intact. There is no drainage today. There is mild swelling over the right hip. There is no erythema or ecchymosis. Patient has full foot and ankle motion without pain or difficulty. Calf is soft and nontender to palpation. Sensation intact. Neurovascular status and circulatory status are intact. - Labs CBC & Chem 7: 05/12/19 12:42 05/13/19 07:06 Labs: Abnormal Lab Results - Last 24 Hours (Table) 05/12/19 05/13/19 Range/Units 12:42 07:06 RBC 3.97 L (4.30-5.90) m/uL Hgb 12.9 L (13.0-17.5) gm/dL Lymphocytes # 0.8 L (1.0-4.8) k/uL Glucose 103 H (74-99) mg/dL Microbiology - Last 24 Hours (Table) 05/10/19 20:10 Urine Culture - Preliminary Urine,Voided Gram Neg Bacilli Assessment and Plan Assessment: History of prostate cancer GERD Renal disease (1) Fall Current Visit: Yes Status: Acute Code(s): W19.XXXA - UNSPECIFIED FALL, INITIAL ENCOUNTER SNOMED Code(s): 2852138 (2) Parkinsons disease Current Visit: Yes Status: Acute Code(s): G20 - PARKINSON'S DISEASE SNOMED Code(s): 30383489 (3) Closed right hip fracture Current Visit: Yes Status: Acute Code(s): S72.001A - FRACTURE OF UNSP PART OF NECK OF RIGHT FEMUR, INIT SNOMED Code(s): 599897741 (4) Right femoral fracture Current Visit: Yes Status: Acute Code(s): S72.91XA - UNSP FRACTURE OF RIGHT FEMUR, INIT FOR CLOS FX SNOMED Code(s): 97080244 Plan: 1. Daily dressing changes. Keep incision clean, dry and intact. 2. Continue routine postoperative care and pain control. 3. Lovenox for DVT prophylaxis. 4. Weightbearing as tolerated to the right lower extremity. 5. Physical therapy for mobilization. Dislocation precautions. 6. Anticipate discharge to [facility] in the next 1-2 days.
--- NOTE | 2019-05-13 13:39 | P.PN ---
Subjective 78-year-old male patient with past medical history of Parkinson's disease, was transferred to our facility from [facility] for right hip fracture; patient is a resident of a long-term care facility for advanced Parkinson's disease; patient is not able to tell much about injury, according to ER documentation patient was in his wheelchair when he had a fall to his right side due to future malfunctioning; patient was transferred to [facility] where he was found to have right hip fracture; he was transferred to our facility for further orthopedic evaluation and treatment 05/13/2019 Patient is a status post right hip cemented unipolar hemiarthroplasty. Today is postoperative day #1. Patient denies chest pain or dyspnea. Right hip pain CONTROLLED. Patient is poor historian and he refuses physical examination however he his vitals looks stable. Patient is afebrile with no leukocytosis. Urinalysis is no suspicious of infection. Urine culture showing gram-negative bacilli however consultation is less than 100,000, and patient without overt signs symptoms. I think antibiotics at this point have more risks than benefits. Patient also has been evaluated by urologist for his chronic urine incontinence which could be related to his Parkinson disease. His deactivated his sphincter pump, and to keep it deactivated still patient is more awake and ambulatory. If postvoid residual is elevated, catheter can be placed. Objective - Vital Signs Vital signs: Vital Signs Temp 98 F 05/13/19 08:02 Pulse 85 05/13/19 08:02 Resp 12 05/13/19 08:02 BP 103/67 05/13/19 08:02 Pulse Ox 96 05/13/19 08:02 Intake & Output 05/12/19 05/13/19 05/13/19 18:59 06:59 18:59 Intake Total 1051 60 Output Total 850 450 Balance 201 -390 Intake: IV 1051 Intake, IV Titration 60 Amount Sodium Chloride 0.9% 1, 60 000 ml @ 20 mls/hr IV . Q24H [facility] Rx#:[id number] Output: Urine 600 450 Uretheral (Curry) 600 Estimated Blood Loss 250 Other: Voiding Method Diaper Indwelling Catheter Indwelling Catheter Incontinent # Voids 1 - Exam Patient refuses physical examination. - Labs CBC & Chem 7: 05/12/19 12:42 05/13/19 07:06 Labs: Abnormal Lab Results - Last 24 Hours (Table) 05/13/19 Range/Units 07:06 Glucose 103 H (74-99) mg/dL Microbiology - Last 24 Hours (Table) 05/10/19 20:10 Urine Culture - Preliminary Urine,Voided Gram Neg Bacilli Assessment and Plan Assessment: Right hip fracture, status post arthroplasty History of advanced Parkinson disease Possible dementia Chronic urine incontinence, related to Parkinson disease. His sphincter pump was deactivated by neurologist Plan: This is a pleasant 78 years old male who presents with right hip fracture, his history of Parkinson disease. Neurologist R following the patient for his incontinence.Labs and medication were reviewed.. Continue same treatment. Continue with symptomatic treatment. Resume home medication. Monitor lytes and vitals. DVT and GI prophylaxis. Further recommendations of the clinical course of the patient DVT prophylaxis and pain management as per primary surgical team Prognosis is guarded Thank you for consulting us.
[2019-05-13] MEDS: CLOTRIMAZOLE 1% CREAM 15 GM TUBE TOPICAL SCH ×2 (15:43→22:10)
[2019-05-13] MEDS: HYDROCORTISONE 1% CREAM 30 GM TUBE TOPICAL SCH ×2 (15:43→22:10)
[2019-05-13] MEDS ORDERED: HYDROcodone/APAP 5-325MG 1 EACH TAB PO PRN (17:20)
[2019-05-13] MEDS: SENNOSIDES-DOCUSATE SODIUM 1 EACH TAB PO SCH (22:09)
[2019-05-13] MEDS: HYDROcodone/APAP 5-325MG 1 EACH TAB PO PRN (22:09)
[2019-05-14] MEDS ORDERED: MORPHINE SULFATE 4 MG/ML SYRINGE IVP PRN ×2 (02:17)
[2019-05-14] MEDS: MORPHINE SULFATE 2 MG/ML SYRINGE IVP PRN ×2 (03:06→23:20)
[2019-05-14 07:15] LABS: Basophils % (A) 0 %; Eosinophils # (A) 0.1 k/uL (0-0.7); Eosinophils % (A) 1 %; HCT 34.7 % (39.0-53.0); HGB 11.6 gm/dL (13.0-17.5); Lymphocytes # (A) 1.1 k/uL (1.0-4.8); Lymphocytes % (A) 11 %; MCH 32.5 pg (25.0-35.0); MCHC 33.4 g/dL (31.0-37.0); MCV 97.3 fL (80.0-100.0); Mean Platelet Volume 7.5; Monocytes # (A) 0.6 k/uL (0-1.0); Monocytes % (A) 6 %; Neutrophils # (A) 7.6 k/uL (1.3-7.7); Neutrophils % (A) 79 %; Platelet Count 186 k/uL (150-450); RBC 3.57 m/uL (4.30-5.90); RDW 12.8 % (11.5-15.5); WBC 9.7 k/uL (3.8-10.6)
[2019-05-14] MEDS: PANTOPRAZOLE 40 MG TABLET PO SCH (09:15)
[2019-05-14] MEDS: ARTIFICIAL TEARS-HYPROMELLOSE DROPS 15 ML BTL BOTH EYES SCH ×3 (09:16→21:45)
[2019-05-14] MEDS: CARBIDOPA-LEVODOPA 25-100 MG 1 EACH TAB PO SCH ×3 (09:17→21:45)
[2019-05-14] MEDS: DIAZEPAM 2 MG TAB PO SCH ×2 (09:18→21:44)
[2019-05-14] MEDS: HYDROCORTISONE 1% CREAM 30 GM TUBE TOPICAL SCH ×2 (09:18→21:45)
[2019-05-14] MEDS: ENOXAPARIN 40 MG/0.4 ML SYRINGE SQ SCH (09:18)
[2019-05-14] MEDS: CLOTRIMAZOLE 1% CREAM 15 GM TUBE TOPICAL SCH ×2 (09:18→21:45)
[2019-05-14] MEDS: HYDROcodone/APAP 5-325MG 1 EACH TAB PO PRN ×2 (09:22→21:44)
[2019-05-14] MEDS: MULTIVITAMINS, THERA 1 EACH TAB PO SCH (11:51)
--- NOTE | 2019-05-14 12:21 | P.PN ---
Subjective Progress Note Date: 05/14/19 A 78-year-old male who is status post right hip hemiarthroplasty by Dr. Nye. This is postoperative day #2. Patient is seen and evaluated at bedside. Patient states that his pain is well-controlled. Patient denies any fever/chills, numbness, weakness, tingling, shortness of breath or chest pain. Objective - Vital Signs Vital signs: Vital Signs Temp 99.9 F H 05/14/19 07:24 Pulse 96 05/14/19 07:24 Resp 15 05/14/19 00:23 BP 110/70 05/14/19 07:24 Pulse Ox 92 L 05/14/19 07:24 Intake & Output 05/13/19 05/14/19 05/14/19 18:59 06:59 18:59 Output Total 500 425 Balance -500 -425 Output: Urine 500 425 Other: Voiding Method Indwelling Catheter Indwelling Catheter - Exam On exam patient is resting comfortably in a chair in no acute distress. Incis ion is clean, dry and intact. There is no drainage today. There is mild swelling over the right hip. There is no erythema or ecchymosis. Patient has full foot and ankle motion without pain or difficulty. Calf is soft and nontender to palpation. Sensation intact. Neurovascular status and circulatory status are intact. - Labs CBC & Chem 7: 05/14/19 06:29 05/13/19 07:06 Labs: Abnormal Lab Results - Last 24 Hours (Table) 05/14/19 Range/Units 06:29 RBC 3.57 L (4.30-5.90) m/uL Hgb 11.6 L (13.0-17.5) gm/dL Hct 34.7 L (39.0-53.0) % Microbiology - Last 24 Hours (Table) 05/10/19 20:10 Urine Culture - Final Urine,Voided Proteus mirabilis Assessment and Plan Assessment: History of prostate cancer GERD Renal disease (1) Fall Current Visit: Yes Status: Acute Code(s): W19.XXXA - UNSPECIFIED FALL, INIT IAL ENCOUNTER SNOMED Code(s): 7364257 (2) Parkinsons disease Current Visit: Yes Status: Acute Code(s): G20 - PARKINSON'S DISEASE SNOMED Code(s): 47301484 (3) Closed right hip fracture Current Visit: Yes Status: Acute Code(s): S72.001A - FRACTURE OF UNSP PART OF NECK OF RIGHT FEMUR, INIT SNOMED Code(s): 011241823 (4) Right femoral fracture Current Visit: Yes Status: Acute Code(s): S72.91XA - UNSP FRACTURE OF RIGHT FEMUR, INIT FOR CLOS FX SNOMED Code(s): 69831147 Plan: 1. Daily dressing changes. Keep incision clean, dry and intact. 2. Continue routine postoperative care and pain control. 3. Lovenox for DVT prophylaxis. 4. Weightbearing as tolerated to the right lower extremity. 5. Physical therapy for mobilization. Dislocation precautions. 6. Anticipate discharge to [facility] in the next 1-2 days.
--- NOTE | 2019-05-14 13:28 | P.PN ---
Subjective 78-year-old male patient with past medical history of Parkinson's disease, was transferred to our facility from [facility] for right hip fracture; patient is a resident of a long-term care facility for advanced Parkinson's disease; patient is not able to tell much about injury, according to ER documentation patient was in his wheelchair when he had a fall to his right side due to future malfunctioning; patient was transferred to [facility] where he was found to have right hip fracture; he was transferred to our facility for further orthopedic evaluation and treatment 05/13/2019 Patient is a status post right hip cemented unipolar hemiarthroplasty. Today is postoperative day #1. Patient denies chest pain or dyspnea. Right hip pain CONTROLLED. Patient is poor historian and he refuses physical examination however he his vitals looks stable. Patient is afebrile with no leukocytosis. Urinalysis is no suspicious of infection. Urine culture showing gram-negative bacilli however consultation is less than 100,000, and patient without overt signs symptoms. I think antibiotics at this point have more risks than benefits. Patient also has been evaluated by urologist for his chronic urine incontinence which could be related to his Parkinson disease. His deactivated his sphincter pump, and to keep it deactivated still patient is more awake and ambulatory. If postvoid residual is elevated, catheter can be placed. 05/14/2019 Patient is a status post right hip cemented unipolar hemiarthroplasty. Today is postoperative day #2. Patient states today he is doing better. He denies chest pain or dyspnea. He denies abdominal pain. He is tolerating diet well, he told me had regular bowel movements. No nausea vomiting. Vitas looks stable however he has low-grade temperature of 99.9 today. His fever mostly related to his surgery. This could be related to surgery however he has enterococcus in the urine but patient without urinary symptoms and his urine analysis is negative. No coughing or other symptoms. We'll keep monitoring. Objective - Vital Signs Vital signs: Vital Signs Temp 99.9 F H 05/14/19 07:24 Pulse 96 05/14/19 07:24 Resp 15 05/14/19 00:23 BP 110/70 05/14/19 07:24 Pulse Ox 92 L 05/14/19 07:24 Intake & Output 05/13/19 05/14/19 05/14/19 18:59 06:59 18:59 Output Total 500 425 Balance -500 -425 Output: Urine 500 425 Other: Voiding Method Indwelling Catheter Indwelling Catheter - Exam Patient refuses physical examination. - Labs CBC & Chem 7: 05/14/19 06:29 05/13/19 07:06 Labs: Abnormal Lab Results - Last 24 Hours (Table) 05/14/19 Range/Units 06:29 RBC 3.57 L (4.30-5.90) m/uL Hgb 11.6 L (13.0-17.5) gm/dL Hct 34.7 L (39.0-53.0) % Microbiology - Last 24 Hours (Table) 05/10/19 20:10 Urine Culture - Final Urine,Voided Proteus mirabilis Assessment and Plan Assessment: Right hip fracture, status post arthroplasty Low-grade temperature, mostly reactive. History of advanced Parkinson disease Possible dementia Chronic urine incontinence, related to Parkinson disease. His sphincter pump was deactivated by neurologist Plan: This is a pleasant 78 years old male who presents with right hip fracture, his history of Parkinson disease. urologist R following the patient for his incontinence.patient low-grade temperature mostly reactive secondary to surgery, patient is asymptomatic. At this point felt that antibiotics have more risks than benefit however keep monitoring if patient spikes more fever or he develop high White cell count then recommend sepsis workup and antibiotic Labs and medication were reviewed.. Continue same treatment. Continue with symptomatic treatment. Resume home medication. Monitor lytes and vitals. DVT and GI prophylaxis. Further recommendations of the clinical course of the patient DVT prophylaxis and pain management as per primary surgical team Prognosis is guarded Thank you for consulting us.
[2019-05-14] MEDS: SENNOSIDES-DOCUSATE SODIUM 1 EACH TAB PO SCH (21:45)
[2019-05-15 00:05] LABS: Appearance,Urine Cloudy (Clear); Bacteria,Urine Rare /hpf; Bilirubin,Urine Negative (Negative); Blood,Urine Moderate (Negative); Color,Urine Yellow; Glucose,Urine (UA) Negative (Negative); Hyaline Casts,Urine 2 /lpf (0-2); Ketones,Urine Trace (Negative); Leukocyte Esterase,Urine Large (Negative); Mucus,Urine Occasional /hpf; Nitrite,Urine Positive (Negative); PH, Urine 5.5 (5.0-8.0); Protein,Urine 1+ (Negative); RBC,Urine 71 /hpf (0-5); Specific Gravity,Urine 1.026 (1.001-1.035); Squamous Epithelial Cell,Urine <1 /hpf (0-4); Urobilinogen,Urine <2.0 mg/dL (<2.0); WBC,Urine >182 /hpf (0-5)
[2019-05-15] MEDS: SODIUM CHLORIDE 0.9% 1,000 ML IV SCH (02:54)
[2019-05-15] MEDS: HYDROcodone/APAP 5-325MG 1 EACH TAB PO PRN ×3 (05:20→22:12)
--- NOTE | 2019-05-15 07:56 | P.DS ---
Providers Date of admission: 05/11/19 00:02 Expected date of discharge: 05/15/19 Attending physician: Porfirio Nye Consults: 05/11/19 00:01 Consult Physician Routine Consulting Provider: Jeanna Kwon Consult Reason/Comments: medical clearance, im consult Do you want consulting provider notified?: Yes 05/12/19 08:48 Consult Physician Routine Consulting Provider: Chriss Lala Consult Reason/Comments: urinary retention, known patient Do you want consulting provider notified?: Yes Primary care physician: Pito Casillas, DO - Discharge Diagnosis(es) (1) Closed right hip fracture Current Visit: Yes Status: Acute (2) Fall Current Visit: Yes Status: Acute (3) Parkinsons disease Current Visit: Yes Status: Acute Hospital Course: This is a 78-year-old male who presented on 05/11/2019 after falling and sustaining injury to the right hip. On exam and x-ray in the emergency department he was found to have a hip fracture. The pt is admitted to our [facility] for surgical intervention and care. The patient is taken to surgery for hemiarthroplasty of the right hip. The procedure is performed without complication or sequelae. The patient is doing fairly well postoperatively. Vital signs are stable on postop day #3. There are no new complaints or concerns. The patient is discharged to inpatient rehab pending medical clearance today. Please refer to [facility] for accurate list of medications. Patient Condition at Discharge: Fair Plan - Discharge Summary Discharge Rx Participant: No New Discharge Prescriptions: New Aspirin 325 mg PO BID #60 tab HYDROcodone/APAP 5-325MG [Houston 5-325] 1 - 2 each PO Q4-6H PRN #50 tab PRN Reason: Pain Sennosides-Docusate Sodium [Senokot-S] 1 tab PO BID #60 tablet No Action Acetaminophen Tab [Tylenol Tab] 650 mg PO Q4H PRN PRN Reason: Pain Cyanocobalamin (Vitamin B-12) [Vitamin B-12] 1,000 mcg PO DAILY Cholecalciferol [Vitamin D3 (25 Mcg = 1000 Iu)] 1,000 unit PO DAILY Sennosides [Senna] 8.6 mg PO DAILY Primidone [Mysoline] 50 mg PO QAM Primidone [Mysoline] 25 mg PO HS Potassium 99 mg PO DAILY Polyethylene Glycol 3350 [Miralax] 17 gm PO DAILY Omeprazole 20 mg PO DAILY Ketoconazole 2% Cream [Nizoral 2%] 1 applic TOPICAL BID Vits A,C,E/Lutein/Minerals [Ocuvite with Lutein Tablet] 1 tab PO DAILY HYDROcodone/APAP 5-325MG [Houston 5-325] 1 tab PO TID PRN PRN Reason: Pain Entacapone [Comtan] 200 mg PO TID DULoxetine HCL [Cymbalta] 30 mg PO DAILY Diazepam 2 mg PO BID Cranberry Fruit Extract [Cranberry] 200 mg PO DAILY Certavite Tab Senior 1 tab PO HS Carbidopa-Levodopa 25-100 mg [Sinemet 25-100] 2 tab PO TID Calcium Carbonate [Calcium] 600 mg PO BID Baclofen [Lioresal] 10 mg PO DAILY Artificial Tears-Hypromellose [Artificial Tear Drops] 1 drops BOTH EYES TID Alclometasone Dipropionate 1 applic TOPICAL BID Magnesium Hydroxide [Milk of Magnesia] 2,400 mg PO DAILY PRN PRN Reason: Constipation Discharge Medication List Acetaminophen Tab [Tylenol Tab] 650 mg PO Q4H PRN 05/10/19 [History] Alclometasone Dipropionate 1 applic TOPICAL BID 05/10/19 [History] Artificial Tears-Hypromellose [Artificial Tear Drops] 1 drops BOTH EYES TID 05/10/19 [History] Baclofen [Lioresal] 10 mg PO DAILY 05/10/19 [History] Calcium Carbonate [Calcium] 600 mg PO BID 05/10/19 [History] Carbidopa-Levodopa 25-100 mg [Sinemet 25-100] 2 tab PO TID 05/10/19 [History] Certavite Tab [facility] 1 tab PO HS 05/10/19 [History] Cholecalciferol [Vitamin D3 (25 Mcg = 1000 Iu)] 1,000 unit PO DAILY 05/10/19 [History] Cranberry Fruit Extract [Cranberry] 200 mg PO DAILY 05/10/19 [History] Cyanocobalamin (Vitamin B-12) [Vitamin B-12] 1,000 mcg PO DAILY 05/10/19 [History] DULoxetine HCL [Cymbalta] 30 mg PO DAILY 05/10/19 [History] Diazepam 2 mg PO BID 05/10/19 [History] Entacapone [Comtan] 200 mg PO TID 05/10/19 [History] HYDROcodone/APAP 5-325MG [Houston 5-325] 1 tab PO TID PRN 05/10/19 [History] Ketoconazole 2% Cream [Nizoral 2%] 1 applic TOPICAL BID 05/10/19 [History] Magnesium Hydroxide [Milk of Magnesia] 2,400 mg PO DAILY PRN 05/10/19 [History] Omeprazole 20 mg PO DAILY 05/10/19 [History] Polyethylene Glycol 3350 [Miralax] 17 gm PO DAILY 05/10/19 [History] Potassium 99 mg PO DAILY 05/10/19 [History] Primidone [Mysoline] 25 mg PO HS 05/10/19 [History] Primidone [Mysoline] 50 mg PO QAM 05/10/19 [History] Sennosides [Senna] 8.6 mg PO DAILY 05/10/19 [History] Vits A,C,E/Lutein/Minerals [Ocuvite with Lutein Tablet] 1 tab PO DAILY 05/10/19 [History] Aspirin 325 mg PO BID #60 tab 05/15/19 [Rx] HYDROcodone/APAP 5-325MG [Houston 5-325] 1 - 2 each PO Q4-6H PRN #50 tab 05/15/19 [Rx] Sennosides-Docusate Sodium [Senokot-S] 1 tab PO BID #60 tablet 05/15/19 [Rx] Follow up Appointment(s)/Referral(s): Martine Simmons NPC [REFERRING] - 1-2 days Mert Campos MD [STAFF PHYSICIAN] - 1 Week (urologist for your sphinctor pump) Mary Lou Olmedo PAC [PHYSICIAN TOURIST INFORMATION ASSISTANT] - 3 Weeks Activity/Diet/Wound Care/Special Instructions: May bear weight as tolerated with walker. May shower if no drainage from incision. Discharge Disposition: TRANSFER TO SNF/ECF
--- NOTE | 2019-05-15 08:10 | P.PN ---
Progress Note - Text Progress Note Date: 05/15/19 The patient says that he has less pain than he did immediately following his surgery but is still uncomfortable when he tries to move his right leg. Urine draining from his Curry catheter is clear. His artificial urinary sphincter remains deactivated. His catheter will be removed this morning to reduce the potential for erosion of the urethra from pressure related to the catheter. The patient should be checked to ensure that his postvoid residuals are acceptably low. For the time being I believe that it would probably be best to leave the sphincter deactivated even though the patient may have more urinary incontinence.
[2019-05-15] MEDS: PANTOPRAZOLE 40 MG TABLET PO SCH (08:30)
[2019-05-15] MEDS: CARBIDOPA-LEVODOPA 25-100 MG 1 EACH TAB PO SCH ×3 (08:30→22:13)
[2019-05-15] MEDS: ARTIFICIAL TEARS-HYPROMELLOSE DROPS 15 ML BTL BOTH EYES SCH ×3 (08:30→22:13)
[2019-05-15] MEDS: HYDROCORTISONE 1% CREAM 30 GM TUBE TOPICAL SCH ×2 (08:31→22:14)
[2019-05-15] MEDS: CLOTRIMAZOLE 1% CREAM 15 GM TUBE TOPICAL SCH ×2 (08:31→22:14)
[2019-05-15] MEDS: ENOXAPARIN 40 MG/0.4 ML SYRINGE SQ SCH (08:31)
[2019-05-15] MEDS: DIAZEPAM 2 MG TAB PO SCH ×2 (08:31→22:13)
--- NOTE | 2019-05-15 13:26 | P.PN ---
Subjective 78-year-old male patient with past medical history of Parkinson's disease, was transferred to our facility from [facility] for right hip fracture; patient is a resident of a long-term care facility for advanced Parkinson's disease; patient is not able to tell much about injury, according to ER documentation patient was in his wheelchair when he had a fall to his right side due to future malfunctioning; patient was transferred to [facility] where he was found to have right hip fracture; he was transferred to our facility for further orthopedic evaluation and treatment 05/13/2019 Patient is a status post right hip cemented unipolar hemiarthroplasty. Today is postoperative day #1. Patient denies chest pain or dyspnea. Right hip pain CONTROLLED. Patient is poor historian and he refuses physical examination however he his vitals looks stable. Patient is afebrile with no leukocytosis. Urinalysis is no suspicious of infection. Urine culture showing gram-negative bacilli however consultation is less than 100,000, and patient without overt signs symptoms. I think antibiotics at this point have more risks than benefits. Patient also has been evaluated by urologist for his chronic urine incontinence which could be related to his Parkinson disease. His deactivated his sphincter pump, and to keep it deactivated still patient is more awake and ambulatory. If postvoid residual is elevated, catheter can be placed. 05/14/2019 Patient is a status post right hip cemented unipolar hemiarthroplasty. Today is postoperative day #2. Patient states today he is doing better. He denies chest pain or dyspnea. He denies abdominal pain. He is tolerating diet well, he told me had regular bowel movements. No nausea vomiting. Vitas looks stable however he has low-grade temperature of 99.9 today. His fever mostly related to his surgery. This could be related to surgery however he has enterococcus in the urine but patient without urinary symptoms and his urine analysis is negative. No coughing or other symptoms. We'll keep monitoring. 05/15/2019 Patient is a status post right hip cemented unipolar hemiarthroplasty. Today is postoperative day #3. Patient is awake. He denies chest pain or dyspnea. He denies nausea or vomiting. He is tolerating diet well. Vitas looks stable. He has low-grade temperature of 99.7. However patient other Vitas looks stable. Labs are reviewed showing. Patient has no leukocytosis as of yesterday. Electrolytes look unremarkable and his creatinine within normal limits. Patient urinalysis was checked and shows indication for infection. Patient has previous urine culture positive for Proteus which is sensitive to many antibiotics. Patient was started on ceftriaxone which is sensitive and she can be discharged on few days of Ceftin. Patient has no urinary symptoms of dysuria or change in frequency but has suprapubic tenderness/his comfort. urologist is managing patient urinary retention. Patient has Curry catheter which was DC'd today as per urologist recommendation, recommended to check postvoid residual, and to keep the sphincter pump deactivated for patient urinary incontinence. Review of systems CONSTITUTIONAL: No fever, no malaise, no fatigue. HEENT: No recent visual problems or hearing problems. Denied any sore throat. CARDIOVASCULAR: No orthopnea, PND, no palpitations, no syncope. PULMONARY: No shortness of breath, no cough, no hemoptysis. GASTROINTESTINAL: No diarrhea, no nausea, no vomiting, no abdominal pain. Normoactive bowel sounds. NEUROLOGICAL: No headaches, no weakness, no numbness. HEMATOLOGICAL: Denies any bleeding or petechiae. GENITOURINARY: Denies any burning micturition, frequency, or urgency. MUSCULOSKELETAL/RHEUMATOLOGICAL: Denies any joint pain, swelling, or any muscle pain. ENDOCRINE: Denies any polyuria or polydipsia. Active Medications Generic Name Dose Route Start Last Admin Trade Name Freq PRN Reason Stop Dose Admin Acetaminophen 650 mg 05/11/19 00:00 Tylenol Tab PO Q6HR PRN Mild Pain or Fever > 100.5 Hydrocodone Bitart/Acetaminophen 2 each 05/13/19 17:20 05/15/19 05:20 Startex 5-325 PO 2 each Q6HR PRN Administration Moderate to Severe Pain Hydrocodone Bitart/Acetaminophen 1 each 05/13/19 17:20 Startex 5-325 PO Q6HR PRN Mild to Mod Pain Artificial Tears 1 drops 05/11/19 09:00 05/15/19 08:30 Artificial Tear Drops BOTH EYES 1 drops TID JONO Administration Carbidopa/Levodopa 2 each 05/11/19 09:00 05/15/19 08:30 Sinemet 25-100 PO 2 each TID JONO Administration Clotrimazole 1 applic 05/11/19 21:00 05/15/19 08:31 Lotrimin Cream TOPICAL 1 applic BID JONO Administration Diazepam 2 mg 05/11/19 09:00 05/15/19 08:31 Valium PO 2 mg BID JONO Administration Enoxaparin Sodium 40 mg 05/12/19 21:00 05/15/19 08:31 Lovenox SQ 40 mg DAILY JONO Administration Hydrocortisone 1 applic 05/11/19 09:00 05/15/19 08:31 Hydrocortisone 1% Cream TOPICAL 1 applic BID JONO Administration Sodium Chloride 1,000 mls @ 20 mls/hr 05/11/19 00:00 05/15/19 02:54 Saline 0.9% IV Not Given .Q24H JONO Ceftriaxone Sodium 1 gm/ 50 mls @ 100 mls/hr 05/15/19 12:00 Sodium Chloride IVPB Q24HR JONO Ceftriaxone Sodium 1 gm/ 50 mls @ 100 mls/hr 05/15/19 13:18 Sodium Chloride IVPB 05/15/19 13:47 ONCE STA Morphine Sulfate 2 mg 05/14/19 02:17 05/14/19 23:20 Morphine Sulfate (Inj) IVP 2 mg Q3H PRN Administration Pain/Discomfort Morphine Sulfate 3 mg 05/14/19 02:17 Morphine Sulfate (Inj) IVP Q3H PRN Pain Morphine Sulfate 4 mg 05/14/19 02:17 Morphine Sulfate (Inj) IVP Q3H PRN Pain Multivitamins 1 each 05/13/19 12:00 05/14/19 11:51 Theragran PO 1 each DAILY@1200 JONO Administration Naloxone HCl 0.2 mg 05/11/19 00:00 Narcan IV Q2M PRN Opioid Reversal Ondansetron HCl 4 mg 05/12/19 08:37 Zofran IVP Q24HR PRN Nausea And Vomiting Pantoprazole Sodium 40 mg 05/14/19 07:30 05/15/19 08:30 Protonix PO 40 mg [id number] JONO Administration Senna/Docusate Sodium 2 each 05/12/19 21:00 05/14/19 21:45 Senokot-S PO 2 each HS JONO Administration Objective - Vital Signs Vital signs: Vital Signs Temp 97.8 F 05/15/19 07:30 Pulse 86 05/15/19 07:30 Resp 16 05/15/19 07:30 BP 129/76 05/15/19 07:30 Pulse Ox 94 L 05/15/19 07:30 Intake & Output 05/14/19 05/15/19 05/15/19 18:59 06:59 18:59 Output Total 300 500 550 Balance -300 -500 -550 Output: Urine 300 500 550 Uretheral (Curry) 550 Other: Voiding Method Indwelling Catheter Indwelling Catheter - Exam GENERAL: The patient is alert and oriented x3, not in any acute distress. Well developed, well nourished. HEENT: Pupils are round and equally reacting to light. EOMI. No scleral icterus. No conjunctival pallor. Normocephalic, atraumatic. No pharyngeal erythema. No thyromegaly. CARDIOVASCULAR: S1 and S2 present. No murmurs, rubs, or gallops. PULMONARY: Chest is clear to auscultation, no wheezing or crackles. -ABDOMEN: Soft, nondistended, normoactive bowel sounds. No palpable organomegaly. Mild suprapubic discomfort/tenderness, no rebound tenderness or guarding MUSCULOSKELETAL: No joint swelling or deformity. EXTREMITIES: No cyanosis, clubbing, or pedal edema. NEUROLOGICAL: Gross neurological examination did not reveal any focal deficits. SKIN: No rashes. - Labs CBC & Chem 7: 05/14/19 06:29 05/13/19 07:06 Labs: Abnormal Lab Results - Last 24 Hours (Table) 05/14/19 Range/Units 23:48 Urine Protein 1+ H (Negative) Urine Ketones Trace H (Negative) Urine Blood Moderate H (Negative) Ur Leukocyte Esterase Large H (Negative) Urine RBC 71 H (0-5) /hpf Urine WBC >182 H (0-5) /hpf Urine WBC Clumps Occasional H (None) /hpf Urine Bacteria Rare H (None) /hpf Urine Mucus Occasional H (None) /hpf Microbiology - Last 24 Hours (Table) 05/10/19 20:10 Urine Culture - Final Urine,Voided Proteus mirabilis Assessment and Plan Assessment: Right hip fracture, status post arthroplasty Acute urinary tract infection History of advanced Parkinson disease Possible dementia Chronic urine incontinence, related to Parkinson disease. His sphincter pump was deactivated by urologist Plan: This is a pleasant 78 years old male who presents with right hip fracture, his history of Parkinson disease. urologist R following the patient for his incontinence. Patient found to have acute urinary tract and we'll continue with Rocephin, give 2 g and discharge patient a few days of Ceftin which is the Denise Sandee is sensitive to. Following recommendation by Urologist for management of sphincter pump and Curry catheter. Labs and medication were reviewed.. Continue same treatment. Continue with symptomatic treatment. Resume home medication. Monitor lytes and vitals. DVT and GI prophylaxis. Fur ther recommendations of the clinical course of the patient DVT prophylaxis and pain management as per primary surgical team Prognosis is guarded Discussed with the staff Patient was instructed to follow up with his PCP in one week Thank you for consulting us.
[2019-05-15] MEDS: MULTIVITAMINS, THERA 1 EACH TAB PO SCH (13:46)
[2019-05-15] MEDS: SENNOSIDES-DOCUSATE SODIUM 1 EACH TAB PO SCH (22:13)
[2019-05-16 01:08] VITALS: TEMP 98.2
[2019-05-16] MEDS: SODIUM CHLORIDE 0.9% 1,000 ML IV SCH (01:51)
[2019-05-16] MEDS: PANTOPRAZOLE 40 MG TABLET PO SCH (07:55)
[2019-05-16] MEDS: CARBIDOPA-LEVODOPA 25-100 MG 1 EACH TAB PO SCH (07:56)
[2019-05-16] MEDS: ARTIFICIAL TEARS-HYPROMELLOSE DROPS 15 ML BTL BOTH EYES SCH (07:56)
[2019-05-16] MEDS: CLOTRIMAZOLE 1% CREAM 15 GM TUBE TOPICAL SCH (07:57)
[2019-05-16] MEDS: HYDROCORTISONE 1% CREAM 30 GM TUBE TOPICAL SCH (07:57)
[2019-05-16] MEDS: DIAZEPAM 2 MG TAB PO SCH (07:57)
[2019-05-16] MEDS: HYDROcodone/APAP 5-325MG 1 EACH TAB PO PRN (07:58)
[2019-05-16] MEDS: ENOXAPARIN 40 MG/0.4 ML SYRINGE SQ SCH (07:58)
[2019-05-16 08:02] VITALS: BP 109/63; PULSE 111; RESP 20
--- NOTE | 2019-05-16 08:51 | P.PN ---
Progress Note - Text Progress Note Date: 05/16/19 This is a 78-year-old male admitted for hip fracture on 05/11/2019. Discharge was held yesterday secondary to prior authorization and acceptance into a facility for rehab. We are planning discharge to inpatient rehab today if cleared and accepted. No new changes on exam today.
[2019-05-16] MEDS: MULTIVITAMINS, THERA 1 EACH TAB PO SCH (11:11)
--- NOTE | 2019-05-16 11:43 | P.PN ---
Subjective 78-year-old male patient with past medical history of Parkinson's disease, was transferred to our facility from [facility] for right hip fracture; patient is a resident of a long-term care facility for advanced Parkinson's disease; patient is not able to tell much about injury, according to ER documentation patient was in his wheelchair when he had a fall to his right side due to future malfunctioning; patient was transferred to [facility] where he was found to have right hip fracture; he was transferred to our facility for further orthopedic evaluation and treatment 05/13/2019 Patient is a status post right hip cemented unipolar hemiarthroplasty. Today is postoperative day #1. Patient denies chest pain or dyspnea. Right hip pain CONTROLLED. Patient is poor historian and he refuses physical examination however he his vitals looks stable. Patient is afebrile with no leukocytosis. Urinalysis is no suspicious of infection. Urine culture showing gram-negative bacilli however consultation is less than 100,000, and patient without overt signs symptoms. I think antibiotics at this point have more risks than benefits. Patient also has been evaluated by urologist for his chronic urine incontinence which could be related to his Parkinson disease. His deactivated his sphincter pump, and to keep it deactivated still patient is more awake and ambulatory. If postvoid residual is elevated, catheter can be placed. 05/14/2019 Patient is a status post right hip cemented unipolar hemiarthroplasty. Today is postoperative day #2. Patient states today he is doing better. He denies chest pain or dyspnea. He denies abdominal pain. He is tolerating diet well, he told me had regular bowel movements. No nausea vomiting. Vitas looks stable however he has low-grade temperature of 99.9 today. His fever mostly related to his surgery. This could be related to surgery however he has enterococcus in the urine but patient without urinary symptoms and his urine analysis is negative. No coughing or other symptoms. We'll keep monitoring. 05/15/2019 Patient is a status post right hip cemented unipolar hemiarthroplasty. Today is postoperative day #3. Patient is awake. He denies chest pain or dyspnea. He denies nausea or vomiting. He is tolerating diet well. Vitas looks stable. He has low-grade temperature of 99.7. However patient other Vitas looks stable. Labs are reviewed showing. Patient has no leukocytosis as of yesterday. Electrolytes look unremarkable and his creatinine within normal limits. Patient urinalysis was checked and shows indication for infection. Patient has previous urine culture positive for Proteus which is sensitive to many antibiotics. Patient was started on ceftriaxone which is sensitive and she can be discharged on few days of Ceftin. Patient has no urinary symptoms of dysuria or change in frequency but has suprapubic tenderness/his comfort. urologist is managing patient urinary retention. Patient has Curry catheter which was DC'd today as per urologist recommendation, recommended to check postvoid residual, and to keep the sphincter pump deactivated for patient urinary incontinence. 05/16/2019 Patient is awake, but his mildly confused today. No chest pain or dyspnea. No severe abdominal pain he has some suprapubic discomfort. Vitas looks stable however is markedly tachycardic. Has low-grade temperature 99.3 but is improving. He remains on ceftriaxone for Proteus UTI. Neurology is also following the case closely for his sphincter pump which is deactivated now. Per staff postvoid residual is minimal. Patient will be discharged and short course of Ceftin. Objective - Vital Signs Vital signs: Vital Signs Temp 98.2 F 05/16/19 00:06 Pulse 111 H 05/16/19 08:02 Resp 20 05/16/19 08:02 BP 109/63 05/16/19 08:02 Pulse Ox 94 L 05/16/19 00:06 Intake & Output 05/15/19 05/16/19 05/16/19 18:59 06:59 18:59 Output Total 550 Balance -550 Output: Urine 550 Uretheral (Curry) 550 Other: Voiding Method Diaper Diaper Incontinent Incontinent # Voids 1 - Exam GENERAL: The patient is alert and oriented x3, not in any acute distress. Well developed, well nourished. HEENT: Pupils are round and equally reacting to light. EOMI. No scleral icterus. No conjunctival pallor. Normocephalic, atraumatic. No pharyngeal erythema. No thyromegaly. CARDIOVASCULAR: S1 and S2 present. No murmurs, rubs, or gallops. PULMONARY: Chest is clear to auscultation, no wheezing or crackles. -ABDOMEN: Soft, nondistended, normoactive bowel sounds. No palpable organomegaly. Mild suprapubic discomfort/tenderness, no rebound tenderness or guarding MUSCULOSKELETAL: No joint swelling or deformity. EXTREMITIES: No cyanosis, clubbing, or pedal edema. NEUROLOGICAL: Gross neurological examination did not reveal any focal deficits. SKIN: No rashes. - Labs CBC & Chem 7: 05/14/19 06:29 05/13/19 07:06 Assessment and Plan Assessment: Acute urinary tract infection Possible elements of metabolic encephalopathy secondary to UTI. Right hip fracture, status post arthroplasty Acute urinary tract infection History of advanced Parkinson disease Possible dementia Chronic urine incontinence, related to Parkinson disease. His sphincter pump was deactivated by urologist Plan: This is a pleasant 78 years old male who presents with right hip fracture, his history of Parkinson disease found to have UTI.. urologist R following the patient for his incontinence. Patient found to have acute urinary tract and we'll continue with Rocephin, give 1 g daily and discharge patient a few days of Ceftin to which then bacteria Proteus is sensitive to. Following recommendation by Urologist for management of sphincter pump and Curry catheter. Labs and medication were reviewed.. Continue same treatment. Continue with symptomatic treatment. Resume home medication. Monitor lytes and vitals. DVT and GI prophylaxis. Further recommendations of the clinical course of the patient DVT prophylaxis and pain management as per primary surgical team Prognosis is guarded Discussed with the staff Patient was instructed to follow up with his PCP in one week Thank you for consulting us.
--- NOTE | 2019-05-16 14:07 | CDI ---
Documentation Clarification Form Date: 05/16/2019 1:44:32 PM From: Vanessa Gomez Phone: '[phone] Admit Date: 05/11/2019 12:02:00 AM Patient Name: Simone Westfall Visit Number: [id number] Discharge Date: ATTENTION: The Clinical Documentation Specialists (CDI) and [facility] Coding Staff appreciate your assistance in clarifying documentation. Please respond to the clarification below the line at the bottom and electronically sign. The CDI & [facility] Coding staff will review the response and follow-up if needed. Please note: Queries are made part of the Legal Health Record. If you have any questions, please contact the author of this message via ITS. Dr. Jonah Elizondo Urinary Tract infection is mentioned on 05/15 in your progress note. History/Risk Factors: 78 year old male presents to the ED after a fall on 05/10/2019. A Curry catheter was inserted o 05/13/2019. The patient has parkinsons and has Sphincter pump. Clinical Indicators: Per Urology consult 05/12 The patient has a history of chronic urinary incontinecnce which may be related to incomplete bladder emptying if he is unalb to deflate the sphincter pump to void due to his Parkinsons disease Vital Signs: 138/85 81 97.8 17 93% ra WBC: 10.3 Urinalysis: Admission 05/10/2019 negative 05/14/2019 protein 1+, ketones trace, blood moderate, nitrate positive , leukocyte esterase large, bacteria rare, wbc 71, Urine Culture: collected on Admission 05/10/2019 Proteus Mirabilis Treatment Antibiotics Rocephin ivpb Please document the condition that these clinical indicators signify, whether Present on Admission, and cause if known: * UTI Proteus Mirabilis due to sphincter pump POA * UTI Proteus Mirabilis due to POA * UTI Proteus Mirabilis due to incomplete bladder emptying POA * UTI Proteus Mirabilis due to Curry Catheter Not POA * UTI Proteus Mirabilis due to Not POA * Other, please specify * Unable to determine (Last Revision: July 2017) Unable to determine MTDD
== END 2019-05-16 14:32 | DRG 469 ==
LOC: EC 22:20 → SUPCPDRO 22:20 → 4SSUR 05-11 00:02
PROVIDERS: ADMIT Orthopaedic Surgery; ATTEND Orthopaedic Surgery
PROC: 0SRR0J9 Replacement of Right Hip Joint, Femoral Surface with Synthetic Substitute, Cemented, Open Approach (ICD-10-PCS; principal; 2019-05-12 08:00)
DX: S72.011A Unspecified intracapsular fracture of right femur, initial encounter for closed fracture (principal); G93.41 Metabolic encephalopathy; M25.051 Hemarthrosis, right hip; N39.0 Urinary tract infection, site not specified; W05.0XXA Fall from non-moving wheelchair, initial encounter; Z91.81 History of falling; B96.4 Proteus (mirabilis) (morganii) as the cause of diseases classified elsewhere; F32.9 Major depressive disorder, single episode, unspecified; F41.9 Anxiety disorder, unspecified; G20 Parkinson's disease; K21.9 Gastro-esophageal reflux disease without esophagitis; N28.9 Disorder of kidney and ureter, unspecified; R32 Unspecified urinary incontinence; Z79.899 Other long term (current) drug therapy; Z85.46 Personal history of malignant neoplasm of prostate; Z87.440 Personal history of urinary (tract) infections; R13.10 Dysphagia, unspecified; Z88.0 Allergy status to penicillin; Z88.2 Allergy status to sulfonamides; Z90.79 Acquired absence of other genital organ(s)
CPT/HCPCS: 36415; 71045; 73501; 73502; 80048; 81001; 81003; 85025; 85610; 85730; 87077; 87086; 87186; 88305; 88311; 93005; 94760; 99285